=== PATIENT | male | born 1950 | race Caucasian/White ===

== ENCOUNTER 2018-08-03 12:04 | Day surgery (SDC) | payer MEDICARE, BC ==
[~2018-08-03] VITALS: Ht 170.2 cm; Wt 82.3 kg
[~2018-08-03 12:04] MED LIST: CARV-50 PO; CHOL500026 PO; DILTIAZEM PO; HCTZ25T PO; HYDR-4069 PO; LISI30TA39 PO; SEVE800T8 PO; ZOC40T PO
[2018-08-03 12:19] VITALS: BP 163/84
[2018-08-03 12:41] LABS: BASOPHILS % (AUTO) 0.1 % (0-1); EOSINOPHILS # (AUTO) 0.4 X10'3 (0-0.9); EOSINOPHILS % (AUTO) 3.8 % (0-6); HEMOGLOBIN 13.8 g/dl (14.0-17.9); LYMPHOCYTES # (AUTO) 0.6 X10'3 (1.1-4.8); MEAN CORPUSCULAR HEMOGLOBIN 29.6 PG (27.0-31.0); MEAN CORPUSCULAR HGB CONC 32.9 % (33.0-36.5); MEAN PLATELET VOLUME 9.9 FL (7.4-10.4); MONOCYTES # (AUTO) 0.5 X10'3 (0-0.9); MONOCYTES % (AUTO) 5.2 % (2-12); NEUTROPHILS # (AUTO) 8.6 X10'3 (1.8-7.7); NEUTROPHILS % (AUTO) 84.9 % (42-75); PLATELET COUNT 121 X10'3 (140-440); RED BLOOD COUNT 4.67 X10'6 (4.70-6.10); RED CELL DISTRIBUTION WIDTH 16.5 % (11.5-14.5); WHITE BLOOD COUNT 10.1 X10'3 (4.5-11.0)
[2018-08-03] MEDS ORDERED: CARV3.122 PO (12:42)
[2018-08-03] MEDS ORDERED: CYAN1TAB18 PO (12:42)
[2018-08-03] MEDS ORDERED: normal saline 1000ml 1,000 ML IV SCH (12:45)
[2018-08-03 13:02] LABS: PROTHROMBIN TIME 10.1 SECONDS (9.0-12.0)
[2018-08-03 13:04] LABS: ALBUMIN 3.7 G/DL (3.4-5.0); ANION GAP 13 (8-16); BLOOD UREA NITROGEN 75 MG/DL (7-18); BUN/CREATININE RATIO 14.2 (5.4-32.0); CALCIUM 9.6 MG/DL (8.5-10.1); CHLORIDE 98 MMOL/L (99-107); GLUCOSE 104 MG/DL (70-104); POTASSIUM 3.8 MMOL/L (3.5-5.1); SODIUM 140 MMOL/L (135-145); TOTAL CARBON DIOXIDE 29.1 MMOL/L (24-32); eGFR 11 ML/MIN
[2018-08-03] MEDS ORDERED: LIDOcaine 1%/PF 5ML 10 MG/ML VIAL ONE (13:37)
[2018-08-03] MEDS ORDERED: iohexol 300mg/ml 100ml inj. ONE (13:37)
[2018-08-03] MEDS ORDERED: midazolam 2 mg/2 ml injection ONE (13:39)
[2018-08-03] MEDS ORDERED: fentaNYL/PF 50MCG/1 ML 2ML syringe ONE (13:39)
[2018-08-03] MEDS ORDERED: heparin 1,000 UNITS/NS 500ml 500 ML ONE (13:39)
[2018-08-03] MEDS ORDERED: midazolam 2 mg/2 ml injection IV PRN (13:40)
[2018-08-03] MEDS ORDERED: LIDOcaine 1%/PF 5ML 10 MG/ML VIAL SQ ONE (13:40)
[2018-08-03] MEDS ORDERED: fentaNYL/PF 50MCG/1 ML 2ML syringe IV PRN (13:40)
[2018-08-03 14:48] VITALS: BP 131/72
[2018-08-03 15:00] VITALS: BP 170/63
[2018-08-03 15:15] VITALS: BP 160/70
[2018-08-03 15:30] VITALS: BP 148/57
[2018-08-03 15:45] VITALS: BP 157/71
== END 2018-08-03 15:55 | disposition home or self-care (01) ==
LOC: SSTAY O 12:04
PROVIDERS: ATTEND Radiology Diagnostic Radiology
DX: T82.858A Stenosis of other vascular prosthetic devices, implants and grafts, initial encounter (principal); Y83.8 Other surgical procedures as the cause of abnormal reaction of the patient, or of later complication, without mention of misadventure at the time of the procedure; Y92.89 Other specified places as the place of occurrence of the external cause; I12.0 Hypertensive chronic kidney disease with stage 5 chronic kidney disease or end stage renal disease; N18.6 End stage renal disease; Q61.3 Polycystic kidney, unspecified; M19.90 Unspecified osteoarthritis, unspecified site; I71.4 Abdominal aortic aneurysm, without rupture; Z86.69 Personal history of other diseases of the nervous system and sense organs; Z87.891 Personal history of nicotine dependence; Z96.652 Presence of left artificial knee joint; Z72.89 Other problems related to lifestyle; Z86.73 Personal history of transient ischemic attack (TIA), and cerebral infarction without residual deficits; Z99.2 Dependence on renal dialysis; Z98.890 Other specified postprocedural states; Z79.899 Other long term (current) drug therapy
CPT/HCPCS: 36415; 36901; 80048; 85025; 85610; 99152; 99153; J1644; J2001; J2250; J3010; J7030; Q9967; C1769; C1894

== ENCOUNTER 2022-01-03 09:27 | Day surgery (SDC) | payer MEDICARE ==
[2022-01-03] VITALS (12 sets, daily range): BP systolic 104–137; BP diastolic 35–70
[~2022-01-03] VITALS: Ht 170.2 cm; Wt 90.2 kg
[~2022-01-03 09:27] MED LIST changes: -CARV-50 PO; +CARV3.122 PO; -CHOL500026 PO; +CYAN1TAB18 PO; -DILTIAZEM PO; -HCTZ25T PO; -HYDR-4069 PO; -LISI30TA39 PO
[2022-01-03 10:35] LABS: BASOPHILS # (AUTO) 0.1 X10'3 (0-0.2); BASOPHILS % (AUTO) 1.2 % (0-1); EOSINOPHILS # (AUTO) 0.3 X10'3 (0-0.9); EOSINOPHILS % (AUTO) 4.3 % (0-6); HEMATOCRIT 36.7 % (42.0-52.0); HEMOGLOBIN 11.6 g/dl (14.0-17.9); LYMPHOCYTES # (AUTO) 0.4 X10'3 (1.1-4.8); LYMPHOCYTES % (AUTO) 6.3 % (21-51); MEAN CORPUSCULAR HEMOGLOBIN 26.1 PG (27.0-31.0); MEAN CORPUSCULAR HGB CONC 31.7 g/dL (33.0-36.5); MEAN CORPUSCULAR VOLUME 82.2 FL (78-98); MEAN PLATELET VOLUME 9.8 FL (7.4-10.4); MONOCYTES # (AUTO) 0.5 X10'3 (0-0.9); MONOCYTES % (AUTO) 7.8 % (2-12); NEUTROPHILS # (AUTO) 5.2 X10'3 (1.8-7.7); NEUTROPHILS % (AUTO) 80.4 % (42-75); PLATELET COUNT 95 X10'3 (140-440); RED BLOOD COUNT 4.46 X10'6 (4.70-6.10); RED CELL DISTRIBUTION WIDTH 18.7 % (11.5-14.5); WHITE BLOOD COUNT 6.4 X10'3 (4.5-11.0)
[2022-01-03 10:51] LABS: ALBUMIN 3.9 G/DL (3.4-5.0); ANION GAP 14 (8-16); BLOOD UREA NITROGEN 95 MG/DL (7-18); CALCIUM 9.2 MG/DL (8.5-10.1); CHLORIDE 100 MMOL/L (99-107); CREATININE 8.65 MG/DL (0.60-1.10); GLUCOSE 97 MG/DL (70-104); POTASSIUM 4.1 MMOL/L (3.5-5.1); SODIUM 141 MMOL/L (135-145); TOTAL CARBON DIOXIDE 27.1 MMOL/L (24-32); eGFR 6 ML/MIN
[2022-01-03 11:18] LABS: ANISOCYTOSIS 2+; PLATELET ESTIMATE DECREASED
[2022-01-03] MEDS ORDERED: PHO667C PO (11:18)
[2022-01-03] MEDS ORDERED: tPA-cathflo 2 MG/2 ml IV flush ONE (11:20)
[2022-01-03] MEDS ORDERED: LIDOcaine 1% (10mg/ml) 2ml vial ONE (11:22)
[2022-01-03] MEDS ORDERED: fentaNYL/PF 50MCG/1 ML 2ML syringe ONE ×2 (12:09→12:53)
[2022-01-03] MEDS ORDERED: midazolam 1 mg/ML 2ml injection ONE ×2 (12:09→12:52)
[2022-01-03] MEDS ORDERED: heparin 1,000 UNITS/NS 500ml 500 ML ONE (12:10)
[2022-01-03] MEDS ORDERED: iohexol 300 MG/1 ML 50ml polymer ONE ×3 (12:10→14:13)
[2022-01-03] MEDS ORDERED: ondansetron/PF 4mg/2ml inj ONE ×2 (13:22→14:18)
[2022-01-03] MEDS ORDERED: proCHLORperazine 10 MG/2 ml inj ONE (14:45)
--- NOTE | 2022-01-03 15:56 | NUR ---
Received call from Dr. Melo: New discharge orders for Aspirin 81 mg po once daily x 6 months due to stents in left arm.
== END 2022-01-03 21:13 | disposition home or self-care (01) ==
LOC: SSTAY O 09:27
PROVIDERS: ATTEND Radiology Vascular & Interventional Radiology
DX: T82.858A Stenosis of other vascular prosthetic devices, implants and grafts, initial encounter (principal); Y83.2 Surgical operation with anastomosis, bypass or graft as the cause of abnormal reaction of the patient, or of later complication, without mention of misadventure at the time of the procedure; Y92.89 Other specified places as the place of occurrence of the external cause
CPT/HCPCS: 36415; 36903; 80048; 85025; C1725; C1769; C1876; C1894; J0780; J1644; J2250; J2405; J3010; J3490; Q9967; 85008; 99152; 99153; J2997

== ENCOUNTER 2022-01-09 09:17 | Day surgery (SDC) | payer MEDICARE ==
[2022-01-09] VITALS (13 sets, daily range): BP systolic 98–148; BP diastolic 43–82
[~2022-01-09] VITALS: Ht 167.6 cm; Wt 91.3 kg
[~2022-01-09 09:17] MED LIST changes: -CARV3.122 PO; -CYAN1TAB18 PO; +PHO667C PO; -SEVE800T8 PO; -ZOC40T PO
[2022-01-09] MEDS ORDERED: SEVE800T8 PO (09:52)
[2022-01-09] MEDS ORDERED: normal saline 1000ml 1,000 ML IV PRN (10:00)
[2022-01-09] MEDS ORDERED: midazolam 1 mg/ML 2ml injection ONE (11:13)
[2022-01-09] MEDS ORDERED: LIDOcaine 1%/PF 5ML 10 MG/ML VIAL ONE ×3 (11:13→15:53)
[2022-01-09] MEDS ORDERED: iohexol 300 MG/1 ML 50ml polymer ONE (11:14)
[2022-01-09] MEDS ORDERED: fentaNYL/PF 50MCG/1 ML 2ML syringe ONE (11:14)
[2022-01-09] MEDS ORDERED: heparin 1,000 UNITS/NS 500ml 500 ML ONE (11:43)
[2022-01-09] MEDS ORDERED: proCHLORperazine 10 MG/2 ml inj ONE (11:57)
[2022-01-09] MEDS ORDERED: tPA-cathflo 2 MG/2 ml IV flush ONE ×2 (12:05→12:20)
[2022-01-09] MEDS ORDERED: heparin 1,000unit/ml 10ml vial 10 ML ONE (15:53)
== END 2022-01-09 16:25 | disposition home or self-care (01) ==
LOC: SSTAY O 09:17
PROVIDERS: ATTEND Radiology Vascular & Interventional Radiology
DX: T82.868A Thrombosis due to vascular prosthetic devices, implants and grafts, initial encounter (principal); I12.0 Hypertensive chronic kidney disease with stage 5 chronic kidney disease or end stage renal disease; N18.6 End stage renal disease; Z98.890 Other specified postprocedural states; Z79.899 Other long term (current) drug therapy; Y83.2 Surgical operation with anastomosis, bypass or graft as the cause of abnormal reaction of the patient, or of later complication, without mention of misadventure at the time of the procedure; Y92.89 Other specified places as the place of occurrence of the external cause
CPT/HCPCS: 36558; 36904; 76937; 77001; 99152; 99153; C1750; C1769; C1894; J0780; J1644; J2250; J2997; J3010; J3490; Q9967; A9270